=== PATIENT | male | born 1940 | race Caucasian/White ===

== ENCOUNTER → 2019-08-30 | Outpatient (CLI) | payer MEDICARE ==
[~2019-08-30] MED LIST: Adult Low Dose81 MG PO; CHOL10002; DOCU100 PO; FLUT.05NI; HYDCHL25 PO; HYDR1TAB94 PO; METO50 PO; Pravastatin Sod20 MG PO; Terazosin HCl10 MG; WARF5 PO
== END | disposition home or self-care (01) ==
LOC: LAB SHORT 08:08 → PLD 08:08
DX: C44.311 Basal cell carcinoma of skin of nose (principal)
CPT/HCPCS: 88305

== ENCOUNTER → 2020-07-25 | Outpatient (CLI) | payer MEDICARE | END | disposition home or self-care (01) | LOC: LAB SHORT 08:09 → PLD 08:09 | DX: C44.42 Squamous cell carcinoma of skin of scalp and neck (principal) | CPT/HCPCS: 88305 ==

== ENCOUNTER → 2021-03-14 | Outpatient (CLI) | payer MEDICARE | LOC: LAB SHORT 14:32 → LAB 14:32 | DX: D48.5 Neoplasm of uncertain behavior of skin (principal); L57.0 Actinic keratosis; D04.4 Carcinoma in situ of skin of scalp and neck | CPT/HCPCS: 88305 ==

== ENCOUNTER → 2021-04-12 | Outpatient (CLI) | payer MEDICARE | END | disposition home or self-care (01) | LOC: LAB SHORT 12:42 → LAB 12:42 | DX: C44.42 Squamous cell carcinoma of skin of scalp and neck (principal) | CPT/HCPCS: 88305 ==

== ENCOUNTER → 2022-03-25 | Outpatient (CLI) | payer MEDICARE | END | disposition home or self-care (01) | LOC: PLD 12:20 → LAB SHORT 12:20 | DX: C44.519 Basal cell carcinoma of skin of other part of trunk (principal) | CPT/HCPCS: 88305 ==

== ENCOUNTER → 2022-12-04 | Outpatient (CLI) | payer MEDICARE | LOC: PLD 10:54 → LAB SHORT 10:54 | DX: D48.5 Neoplasm of uncertain behavior of skin (principal) | CPT/HCPCS: 88305 ==

== ENCOUNTER → 2023-07-21 | Outpatient (CLI) | payer MEDICARE | LOC: PLD 14:36 → LAB SHORT 14:36 | DX: C44.619 Basal cell carcinoma of skin of left upper limb, including shoulder (principal); C44.319 Basal cell carcinoma of skin of other parts of face | CPT/HCPCS: 88305 ==

== ENCOUNTER → 2023-08-20 | Outpatient (CLI) | payer MEDICARE | END | disposition home or self-care (01) | LOC: LAB SHORT 14:29 → LAB 14:29 | DX: C44.310 Basal cell carcinoma of skin of unspecified parts of face (principal) | CPT/HCPCS: 88305 ==

== ENCOUNTER 2023-09-07 08:51 | Inpatient (IN) | payer MEDICARE ==
[~2023-09-07] VITALS: Ht 170.2 cm; Wt 96.0 kg
[2023-09-07 09:49] LABS: BASOPHILS ABSOLUTE AUTO 0.02 K/mm3 (0.00-0.23); BASOPHILS PERCENT AUTO 0 % (0-2); EOSINOPHILS ABSOLUTE AUTO 0.01 K/mm3 (0.00-0.68); EOSINOPHILS PERCENT AUTO 0 % (0-6); Hematocrit 37.3 % (37.0-53.0); IMMATURE GRAN ABSOLUTE AUTO 0.11 K/mm3 (0.00-0.10); IMMATURE GRAN PERCENT AUTO 1 % (0-1); LYMPHOCYTES ABSOLUTE AUTO 0.54 K/mm3 (0.84-5.20); LYMPHOCYTES PERCENT AUTO 3 % (21-46); MONOCYTES ABSOLUTE AUTO 0.68 K/mm3 (0.16-1.47); MONOCYTES PERCENT AUTO 4 % (4-13); Mean Corpuscular HGB 32.9 pg (26.0-34.0); Mean Corpuscular HGB Conc 34.9 g/dL (31.5-36.5); Mean Corpuscular Volume 94 fL (80-100); Mean Platelet Volume 10.4 fL (9.1-12.4); NEUTROPHILS ABSOLUTE AUTO 16.62 K/mm3 (1.96-9.15); NEUTROPHILS PERCENT AUTO 92 % (41-73); Platelet Count 148 K/mm3 (150-400); RDW Coefficient Variation 12.8 % (11.7-14.2); Red Blood Cell Count 3.95 M/mm3 (4.30-5.90); White Blood Cell Count 17.98 K/mm3 (4.00-11.30)
[2023-09-07 10:03] LABS: International Normalized Ratio 2.69; Prothrombin Time Results 26.7 Sec (9.7-11.5)
[2023-09-07 10:10] LABS: Albumin, Blood 3.3 g/dL (3.4-5.0); Bilirubin, Total 4.4 mg/dL (0.1-1.0); Bun/Creatinine Ratio 12.8 (12.0-20.0); Calcium, Blood 8.5 mg/dL (8.5-10.1); Creatinine, Blood 1.09 mg/dL (0.60-1.20); Globulin, Blood 3.3 g/dL (2.2-4.0); Potassium, Blood 2.5 mmol/L (3.5-5.5); Total Protein, Blood 6.6 g/dL (6.4-8.2)
[2023-09-07] MEDS ORDERED: Prinivil10 MG PO (10:13)
[2023-09-07] MEDS ORDERED: METOPROLOL TART5010 PO (10:13)
[2023-09-07] MEDS ORDERED: PRAVASTATIN SOD20 MG PO (10:15)
[2023-09-07] MEDS ORDERED: JANTOVEN5 M2 PO (10:15)
[2023-09-07] MEDS ORDERED: FLUTICASONE PRO16 GM (10:15)
[2023-09-07] MEDS ORDERED: HYDCHL25 PO (10:15)
[2023-09-07] MEDS ORDERED: Potassium Chlo20 ME1 PO (10:16)
[2023-09-07] MEDS ORDERED: HYDROCODONE-AC1 EA19 PO (10:16)
[2023-09-07] MEDS ORDERED: LISI20 PO (10:16)
[2023-09-07 16:16] VITALS: BP 118/59
--- NOTE | 2023-09-07 17:32 | NUR ---
SHIFT SUMMARY PATIENT ADMITTED TO FLOOR ABOUT 1620. A/O X4. RECEIVING LR ON ARRIVAL. 60MEQ BAG OF POTASSIUM ACCOMPANIED AND HUNG ON ARRIVAL. CALLED DR HARRIS TO VERIFY CARDIAC DIET VS NPO, STATED CARDIAC DIET IS BETTER BECAUSE PT NEEDS TO USE HIS BOWELS IF HE CAN. VERIFIED THAT HE DOESN'T WANT TO CONTINUE IV FLUIDS PAST THE CURRENT BAG HUNG. OKAYED TELE TO BE ORDERED BECAUSE OF LOW POTASSIUM AND IV REPLACEMENT. PATIENT ABLE TO STAND PIVOT TO BED FROM [facility] WITH NO AIDES. [place] [employer], STATES SHE WILL SEND HIS AIDES TOMORROW. WILL CONTINUE TO MONITOR
[2023-09-07 19:55] VITALS: BP 122/79
--- NOTE | 2023-09-08 04:18 | NUR ---
SHIFT SUMMARY GALE WAS ALERT AND FULLY ORIENTED AT START OF SHIFT. PT ACCIDENTALLY PULLED HIS IV, NEW IV PLACED BY [employer]. PT WORE HIS CPAP THROUGH THE NIGHT, AND HAD ONE EPISODE REPORTED FROM TELEMETRY OF TACHYCARDIA UP TO 160'S, PULSE RATE RESOLVED AFTER PATIENT WAS ASSISTED WITH ELIMINATION. NO ACUTE EVENTS TONIGHT. PT SLEPT THROUGH MOST OF THE SHIFT, AND IS CURRENTLY IN BED AT A LOW POSITION WITH THE CALL LIGHT IN REACH.
[2023-09-08 04:52] LABS: BASOPHILS ABSOLUTE AUTO 0.03 K/mm3 (0.00-0.23); BASOPHILS PERCENT AUTO 0 % (0-2); EOSINOPHILS ABSOLUTE AUTO 0.03 K/mm3 (0.00-0.68); EOSINOPHILS PERCENT AUTO 0 % (0-6); Hematocrit 35.6 % (37.0-53.0); Hemoglobin 12.2 g/dL (13.5-17.5); IMMATURE GRAN ABSOLUTE AUTO 0.09 K/mm3 (0.00-0.10); IMMATURE GRAN PERCENT AUTO 1 % (0-1); LYMPHOCYTES PERCENT AUTO 7 % (21-46); MONOCYTES ABSOLUTE AUTO 1.07 K/mm3 (0.16-1.47); MONOCYTES PERCENT AUTO 6 % (4-13); Mean Corpuscular HGB 32.4 pg (26.0-34.0); Mean Corpuscular HGB Conc 34.3 g/dL (31.5-36.5); Mean Corpuscular Volume 94 fL (80-100); NEUTROPHILS ABSOLUTE AUTO 14.68 K/mm3 (1.96-9.15); NEUTROPHILS PERCENT AUTO 86 % (41-73); Platelet Count 141 K/mm3 (150-400); RDW Coefficient Variation 13.4 % (11.7-14.2); RDW Standard Deviation 46.5 fL (35.1-46.3); Red Blood Cell Count 3.77 M/mm3 (4.30-5.90)
[2023-09-08 05:09] LABS: International Normalized Ratio 2.53; Prothrombin Time Results 25.2 Sec (9.7-11.5)
[2023-09-08 05:15] LABS: Albumin, Blood 2.9 g/dL (3.4-5.0); Albumin/Globulin Ratio 0.9 (0.8-1.8); Bilirubin, Total 4.5 mg/dL (0.1-1.0); Bun/Creatinine Ratio 18.5 (12.0-20.0); Calcium, Blood 8.2 mg/dL (8.5-10.1); Creatinine, Blood 1.19 mg/dL (0.60-1.20); Globulin, Blood 3.4 g/dL (2.2-4.0); Magnesium, Blood 1.6 mg/dL (1.6-2.4); Potassium, Blood 3.6 mmol/L (3.5-5.5); Total Protein, Blood 6.3 g/dL (6.4-8.2)
[2023-09-08 07:01] VITALS: BP 172/80
[2023-09-08 15:42] VITALS: BP 162/88
--- NOTE | 2023-09-08 19:54 | NUR ---
SHIFT SUMMARY PT A&OX4. PT'S C/O SEVERE PAIN AT START OF SHIFT. DR HARDIN NOTIFED AND NEW ORDERS GIVEN FOR PAIN MEDICATIONS. PT MEDICATED PER EMAR AND PAIN WAS BETTER MANAGED THE DAY WENT ON. PT DECLINED MEALS D/T ABD PAIN. PT'S HR JUMPS TO 140-170 PER CUTTER OUT WHEN STANDING AT BEDSIDE TO USE URINAL. PT APPEARS ASYMPOTAMTIC AND DENIES FEELING ANY DIFFERENCE WITH HR. FAMILY AT BEDSIDE IN AFTERNOON. REPORT GIVEN TO ONCOMING NURSE. BED IN LOWEST POSITION AND CALL LIGHT IN REACH.
[2023-09-09 04:57] VITALS: BP 172/93
--- NOTE | 2023-09-09 04:58 | NUR ---
DILAUDID GIVEN AT BEDTIME. AFIB AT 94 PER TELEMETRY. UP WITH ASSIST TO USE THE URINAL.
[2023-09-09 04:59] LABS: BASOPHILS ABSOLUTE AUTO 0.02 K/mm3 (0.00-0.23); BASOPHILS PERCENT AUTO 0 % (0-2); EOSINOPHILS ABSOLUTE AUTO 0.16 K/mm3 (0.00-0.68); EOSINOPHILS PERCENT AUTO 1 % (0-6); Hematocrit 35.9 % (37.0-53.0); Hemoglobin 12.2 g/dL (13.5-17.5); IMMATURE GRAN ABSOLUTE AUTO 0.05 K/mm3 (0.00-0.10); IMMATURE GRAN PERCENT AUTO 0 % (0-1); LYMPHOCYTES ABSOLUTE AUTO 0.91 K/mm3 (0.84-5.20); LYMPHOCYTES PERCENT AUTO 8 % (21-46); MONOCYTES ABSOLUTE AUTO 0.83 K/mm3 (0.16-1.47); MONOCYTES PERCENT AUTO 7 % (4-13); Mean Corpuscular HGB 32.6 pg (26.0-34.0); Mean Corpuscular Volume 96 fL (80-100); NEUTROPHILS ABSOLUTE AUTO 9.26 K/mm3 (1.96-9.15); NEUTROPHILS PERCENT AUTO 83 % (41-73); Platelet Count 121 K/mm3 (150-400); RDW Coefficient Variation 13.9 % (11.7-14.2); RDW Standard Deviation 49.1 fL (35.1-46.3); Red Blood Cell Count 3.74 M/mm3 (4.30-5.90); White Blood Cell Count 11.23 K/mm3 (4.00-11.30)
[2023-09-09 06:05] LABS: Albumin, Blood 2.8 g/dL (3.4-5.0); Albumin/Globulin Ratio 0.8 (0.8-1.8); Bilirubin, Total 2.7 mg/dL (0.1-1.0); Bun/Creatinine Ratio 22.5 (12.0-20.0); Calcium, Blood 8.7 mg/dL (8.5-10.1); Creatinine, Blood 0.85 mg/dL (0.60-1.20); Globulin, Blood 3.5 g/dL (2.2-4.0); Magnesium, Blood 2.1 mg/dL (1.6-2.4); Potassium, Blood 3.7 mmol/L (3.5-5.5); Total Protein, Blood 6.3 g/dL (6.4-8.2)
[2023-09-09 07:20] VITALS: BP 158/98
[2023-09-09 15:22] VITALS: BP 175/90
[2023-09-09 16:46] LABS: International Normalized Ratio 1.82; Prothrombin Time Results 18.5 Sec (9.7-11.5)
--- NOTE | 2023-09-09 19:04 | NUR ---
SHIFT SUMMARY PT IS A&OX4. PT STATED PAIN WAS MUCH LESS SEVER TODAY AND DID NOT NEED PAIN MEDICATIONS OFTEN YESTERDAY. PT WAS ABLE TO EAT A LITTLE LUNCH AND TOLERATED WELL. HOME BP MEDS RESUMED TODAY. PT'S BP WAS ELEVATED IN AFTERNOON SO ONE TIME DOSE OF LISINIPRIL AND METORPOLOL GIVEN. FAMILY AT BEDSIDE IN AFTERNOON. PT REPORTS NO BM FOR SEVERAL DAYS. BOWEL CARE ORDERS GIVEN. PT CALLS APPROPRIATLY. BED IN LOWEST POSITION AND CALL LIGHT IN REACH.
[2023-09-09 19:34] VITALS: BP 119/76
[2023-09-10 02:39] VITALS: BP 151/88
--- NOTE | 2023-09-10 04:47 | NUR ---
NOC SHIFT SUMMARY: PT ALERT AND ORIENTED X4. POSSIBLE DISCHARGE TO HOME TODAY. CONTINUES TO BE IN AFIB. PRN PAIN MEDICATIONS GIVEN. HERE FOR PANCREATITIS. CALL LIGHT WITHIN REACH. BED IN LOW POSITION.
[2023-09-10 05:15] LABS: BASOPHILS ABSOLUTE AUTO 0.01 K/mm3 (0.00-0.23); BASOPHILS PERCENT AUTO 0 % (0-2); EOSINOPHILS ABSOLUTE AUTO 0.24 K/mm3 (0.00-0.68); EOSINOPHILS PERCENT AUTO 3 % (0-6); Hematocrit 33.5 % (37.0-53.0); Hemoglobin 11.4 g/dL (13.5-17.5); IMMATURE GRAN ABSOLUTE AUTO 0.02 K/mm3 (0.00-0.10); IMMATURE GRAN PERCENT AUTO 0 % (0-1); LYMPHOCYTES ABSOLUTE AUTO 1.19 K/mm3 (0.84-5.20); LYMPHOCYTES PERCENT AUTO 14 % (21-46); MONOCYTES ABSOLUTE AUTO 1.18 K/mm3 (0.16-1.47); MONOCYTES PERCENT AUTO 14 % (4-13); Mean Corpuscular HGB 32.5 pg (26.0-34.0); Mean Corpuscular Volume 95 fL (80-100); Mean Platelet Volume 11.1 fL (9.1-12.4); NEUTROPHILS ABSOLUTE AUTO 5.76 K/mm3 (1.96-9.15); NEUTROPHILS PERCENT AUTO 69 % (41-73); Platelet Count 120 K/mm3 (150-400); RDW Coefficient Variation 13.8 % (11.7-14.2); RDW Standard Deviation 48.6 fL (35.1-46.3); Red Blood Cell Count 3.51 M/mm3 (4.30-5.90)
[2023-09-10 05:26] LABS: International Normalized Ratio 1.78; Prothrombin Time Results 18.1 Sec (9.7-11.5)
[2023-09-10 06:00] LABS: Albumin, Blood 2.6 g/dL (3.4-5.0); Albumin/Globulin Ratio 0.7 (0.8-1.8); Bilirubin, Total 1.7 mg/dL (0.1-1.0); Bun/Creatinine Ratio 19.7 (12.0-20.0); Calcium, Blood 8.7 mg/dL (8.5-10.1); Creatinine, Blood 0.87 mg/dL (0.60-1.20); Globulin, Blood 3.7 g/dL (2.2-4.0); Magnesium, Blood 1.9 mg/dL (1.6-2.4); Potassium, Blood 3.8 mmol/L (3.5-5.5); Total Protein, Blood 6.3 g/dL (6.4-8.2)
[2023-09-10 07:27] VITALS: BP 161/88
[2023-09-10 09:25] VITALS: BP 133/77
--- NOTE | 2023-09-10 13:56 | NUR ---
Patient alert & oriented x4, no acute changes to patient status. BP WNL stated patient is ready for discharge. Reviewed discharge teaching with patient & family. Patient left medical unit at 1200.
== END 2023-09-10 12:00 | disposition home or self-care (01) | DRG 439 ==
LOC: ER 08:51 → MEDS 15:50
PROVIDERS: Emergency Medicine; Family Medicine; ADMIT Internal Medicine
DX: K85.20 Alcohol induced acute pancreatitis without necrosis or infection (principal); I48.20 Chronic atrial fibrillation, unspecified; I95.9 Hypotension, unspecified; R22.43 Localized swelling, mass and lump, lower limb, bilateral; I10 Essential (primary) hypertension; I72.8 Aneurysm of other specified arteries; N40.0 Benign prostatic hyperplasia without lower urinary tract symptoms; E78.5 Hyperlipidemia, unspecified; M19.90 Unspecified osteoarthritis, unspecified site; E87.6 Hypokalemia; E11.9 Type 2 diabetes mellitus without complications; F10.90 Alcohol use, unspecified, uncomplicated; G47.30 Sleep apnea, unspecified; K59.00 Constipation, unspecified; Z79.01 Long term (current) use of anticoagulants; Z79.899 Other long term (current) drug therapy
CPT/HCPCS: 36415; 74177; 80053; 83690; 83735; 85025; 85610; 93005; 93010; 94660; 94762; 96361; 96374-59; 96375; 99285-25; A9270; J1170; J3475; J3480; J7030; J7040; J7050; J7120; Q9967